=== PATIENT | male | born 1940 | race Two or more races ===

== ENCOUNTER 2022-02-24 19:09 | Emergency (ER) | payer MEDICARE ==
[~2022-02-24] VITALS: Ht 185.4 cm; Wt 84.0 kg
[2022-02-24 19:35] LABS: IMMATURE GRANULOCYTES 0.6 % (0.0-5.0); MEAN CELL VOLUME 82.1 fL CALC (80.0-100.0); MEAN CORPUSCULAR HGB 29.1 pG CALC (26.0-32.0); MEAN CORPUSCULAR HGB CONC 35.4 g/dL CAL (32.0-36.0); RED BLOOD COUNT 3.58 mill/uL (4.70-6.10); RED CELL DISTRI WIDTH 14.8 % (11.5-15.5)
[2022-02-24 19:42] LABS: HEMATOCRIT 29.4 % (39.0-50.0); HEMOGLOBIN 10.4 g/dl (14.0-18.0); MANUAL DIFFERENTIAL YES; PLATELET COUNT 411 thou/uL (130-400)
[2022-02-24 19:52] LABS: AMYLASE 62 u/l (30-110); CARBON DIOXIDE 24 mmol/l (22-30); CHLORIDE 96 mmol/l (95-108); POTASSIUM 4.3 mmol/l (3.5-5.1); SGOT/AST 27 u/l (19-48)
[2022-02-24 19:54] LABS: PLATELET ESTIMATE SLIGHT INCREASE
[2022-02-24 19:55] LABS: ALBUMIN 2.6 g/dL (3.2-5.0); ALKALINE PHOSPHATASE 304 u/l (38-126); ANION GAP 16 (6-22 (CALC)); BILIRUBIN, TOTAL 1.5 mg/dL (0.0-1.4); BUN 65 mg/dL (8-23); BUN/CREATININE RATIO 24 (12-20 (CALC)); CREATININE 2.7 mg/dL (0.7-1.3); GFR FOR AFR.AMER. 28 ML/MIN (>=60 (CALC)); GFR OTHER RACES 23 ML/MIN (>=60 (CALC)); SODIUM 132 mmol/l (137-146); TOTAL PROTEIN 5.6 g/dL (6.3-8.2)
[2022-02-24 20:04] LABS: MYOGLOBIN 129 ng/mL (0 - 121)
[2022-02-24 21:18] LABS: URINE BILIRUBIN - DIPSTICK NEGATIVE (NEGATIVE); URINE BLOOD DIPSTICK NEGATIVE (NEGATIVE); URINE COLOR YELLOW; URINE GLUCOSE - DIPSTICK NEGATIVE (NEGATIVE); URINE KETONE TRACE mg/dL (NEGATIVE); URINE PROTEIN - DIPSTICK TRACE mg/dL (NEG-TRACE); URINE SPECIFIC GRAVITY >=1.030
[2022-02-24 21:20] LABS: URINE LEUK ESTERASE MODERATE (NEGATIVE); URINE NITRITE - DIPSTICK NEGATIVE (Negative)
[2022-02-24 21:25] LABS: URINE BACTERIA MANY hpf; URINE RBC 0-2 RBC/hpf (0-5); URINE WBC >100 WBC/hpf (0-5)
[2022-02-25 00:55] VITALS: BP 110/62
== END 2022-02-25 00:59 | disposition short-term general hospital (02) ==
LOC: ED 19:09
PROVIDERS: Emergency Medicine
PROC: 0T9B70Z Drainage of Bladder with Drainage Device, Via Natural or Artificial Opening (ICD-10-PCS; principal; 2022-02-24)
DX: R16.0 Hepatomegaly, not elsewhere classified (principal); N17.9 Acute kidney failure, unspecified; I31.3 Pericardial effusion (noninflammatory); N39.0 Urinary tract infection, site not specified; B96.20 Unspecified Escherichia coli [E. coli] as the cause of diseases classified elsewhere; Z16.12 Extended spectrum beta lactamase (ESBL) resistance; Z85.46 Personal history of malignant neoplasm of prostate; Z20.822 Contact with and (suspected) exposure to COVID-19
CPT/HCPCS: S0164